=== PATIENT | female | born 1930 | race Caucasian/White ===

== ENCOUNTER → 2016-09-27 | Outpatient (CLI) | payer MEDICARE ==
[~2016-09-27] MED LIST: CALC200S NASAL; EX-L15TA PO; GABA100C4 PO; HYDR-3580 PO; LORA-373 PO; MEMA1TAB2 PO; MIDO2.5T PO; VITA100036 PO; [UNRECOGNIZED DRUG - OTHER]; [UNRECOGNIZED DRUG - SUPPLY]
[2016-09-27 11:42] LABS: HEMATOCRIT 37.9 % (35.0-46.0); MEAN CELL VOLUME 91.6 FL (80.0-100.0); MEAN CORPUSCULAR HEMOGLOBIN 30.4 PG (27.0-34.0); MEAN CORPUSCULAR HGB CONC 33.2 % (32.0-36.0); PLATELET COUNT 131 TH/MM3 (150-450); RED BLOOD COUNT 4.14 MIL/MM3 (4.00-5.30); RED CELL DISTRIBUTION WIDTH 13.5 % (11.6-17.2); REVIEW FLAG FINAL; WHITE BLOOD COUNT 4.5 TH/MM3 (4.0-11.0)
[2016-09-27 12:09] LABS: BICARBONATE 30.9 MEQ/L (21.0-32.0); POTASSIUM 3.7 MEQ/L (3.5-5.1)
== END ==
LOC: ELAB 10:01
PROVIDERS: ATTEND Family Medicine
DX: R41.0 Disorientation, unspecified (principal); R55 Syncope and collapse; F05 Delirium due to known physiological condition
CPT/HCPCS: 36415; 80048; 82607; 84443; 85027

== ENCOUNTER 2017-05-02 11:18 | Inpatient (IN) | payer MEDICARE ==
[2017-05-02] MEDS: PANTOPRAZOLE INJ 80 MG in SODIUM CHLORIDE 0.9% INJ 35 ML IV (12:19)
[2017-05-02 13:02] LABS: AUTOMATED NEUTROPHIL # 11.3 TH/MM3 (1.8-7.7); BASOPHIL % 0.1 % (0.0-2.0); HEMATOCRIT 41.4 % (35.0-46.0); HEMOGLOBIN 13.8 GM/DL (11.6-15.3); LYMPH % 3.4 % (9.0-44.0); LYMPHOCYTE # 0.4 TH/MM3 (1.0-4.8); MEAN CELL VOLUME 94.5 FL (80.0-100.0); MEAN CORPUSCULAR HEMOGLOBIN 31.6 PG (27.0-34.0); MEAN CORPUSCULAR HGB CONC 33.4 % (32.0-36.0); MEAN PLATELET VOLUME 9.7 FL (7.0-11.0); MONO % 6.7 % (0.0-8.0); MONOCYTE # 0.8 TH/MM3 (0-0.9); NEUT % 89.8 % (16.0-70.0); PLATELET COUNT 114 TH/MM3 (150-450); RED BLOOD COUNT 4.38 MIL/MM3 (4.00-5.30); RED CELL DISTRIBUTION WIDTH 13.4 % (11.6-17.2); WHITE BLOOD COUNT 12.6 TH/MM3 (4.0-11.0)
[2017-05-02 13:05] LABS: HEMO FLAGS AUTO DIFF
[2017-05-02 13:10] LABS: APTT (PATIENT) 28.5 SEC (24.3-30.1); INTERNATIONAL NORMALIZED RATIO 1.1 RATIO; PROTHROMBIN TIME - PATIENT 11.3 SEC (9.8-11.6)
[2017-05-02] MEDS: PANTOPRAZOLE INJ 80 MG in SODIUM CHLORIDE 0.9% INJ 100 ML IV ×2 (13:16→23:40)
[2017-05-02 13:25] LABS: LACTIC ACID SEPSIS PROTOCOL 4.4 mmol/L (0.4-2.0)
[2017-05-02 13:48] LABS: ALBUMIN 3.8 GM/DL (3.4-5.0); ALKALINE PHOSPHATASE 127 U/L (45-117); ALT (GPT) 64 U/L (10-53); ANION GAP 11 MEQ/L (5-15); BANDS 35 % (0-6); BLOOD UREA NITROGEN 25 MG/DL (7-18); CALCIUM 9.6 MG/DL (8.5-10.1); CHLORIDE 101 MEQ/L (98-107); GLOMERULAR FILTRATION RATE 36 ML/MIN (>89); GLUCOSE,RANDOM 187 MG/DL (74-106); LIPASE 60 U/L (73-393); LYMPHOCYTES 1 % (9-44); MONOCYTES 8 % (0-8); NEUTROPHIL # MANUAL DIFF 11.5 TH/MM3 (1.8-7.7); PLATELET ESTIMATE SMEAR LOW (NORMAL); PLATELET MORPHOLOGY NORMAL (NORMAL); POLYS (SEG NEUTROPHILS) 56 % (16-70); SCAN/DIFF FINAL DIFF MANUAL; SODIUM (NA) 138 MEQ/L (136-145); TOTAL BILIRUBIN ADULT 1.2 MG/DL (0.2-1.0); TOTAL PROTEIN 8.1 GM/DL (6.4-8.2); TROPONIN I 0.08 NG/ML (0.02-0.05); WBC DIFF SAMPLE 100
[2017-05-02] MEDS: SODIUM CHLOR 0.9% 1000 ML INJ 1,000 ML IV ×3 (13:54→16:11)
[2017-05-02] MEDS: PIPERACIL-TAZO 3.375 GM PREMIX 50 ML IV ×2 (13:54→21:55)
[2017-05-02 13:56] LABS: AST (GOT) 118 U/L (15-37); CREATINE KINASE 2240 U/L (26-192); POTASSIUM 4.4 MEQ/L (3.5-5.1)
[2017-05-02 14:08] LABS: CKMB 18.9 NG/ML (0.5-3.6); CKMB % 0.8 % (0.0-4.0)
[2017-05-02] MEDS: IOHEXOL 350 MG/ML 10 ML VIAL (for RAD DIAG) IVCONTRAST (14:23)
[2017-05-02] MEDS: IODIXANOL 320 MG/ML 10 ML VIAL (for Rad CT) IVCONTRAST (14:30)
[2017-05-02] MEDS: VANCOMYCIN INJ 900 MG in SODIUM CHLOR 0.9% 250 ML INJ 250 ML IV (14:32)
[2017-05-02 14:48] LABS: LACTIC ACID GHOST NOT REPORTABLE
[2017-05-02 15:27] LABS: LACTIC ACID 2.6 mmol/L (0.4-2.0)
[2017-05-02] MEDS ORDERED: ACETAMINOPHEN 325 MG TAB PO (15:30)
[2017-05-02] MEDS ORDERED: ONDANSETRON HCL 4 MG/2 ML VIAL IVP (15:30)
[2017-05-02] MEDS ORDERED: NALOXONE HCL 0.4 MG/ML AMP IV PUSH (15:30)
[2017-05-02] MEDS ORDERED: PANTOPRAZOLE SODIUM 40 MG VIAL IV PUSH (16:00)
[2017-05-02 16:55] LABS: LACTIC ACID SEPSIS REPEAT 2.8 mmol/L (0.4-2.0)
[2017-05-02 16:56] LABS: BACTERIA, URINE MANY /hpf; BILIRUBIN, URINE NEG (NEG); BLOOD, URINE MOD (NEG); GLUCOSE,URINE TRACE mg/dL (NEG); HYALINE CAST, URINE 14 /lpf (RARE); KETONE, URINE NEG (NEG); MUCUS URINE FEW /lpf (OCC); NITRITE,URINE NEG (NEG); PH, URINE 5.5 (5.0-8.5); SQUAMOUS EPITHELIAL CELL URINE 1 /hpf (0-5); URINE COLOR YELLOW (YELLW/STRAW); URINE LEUKOCYTE ESTERASE MOD (NEG)
[2017-05-02 16:58] LABS: COMMENT (UR) CATH-CULTURE IND; CULTURE IF INDICATED CATH CULTURE IND
[2017-05-02] MEDS ORDERED: LORazepam 0.5 MG TAB PO (17:45)
[2017-05-02] MEDS ORDERED: Vancomycin Consult Pharmacy 1 EA OTHER (18:15)
[2017-05-02] MEDS: GABAPENTIN 100 MG CAP PO (21:00)
[2017-05-02] MEDS: DOCUSATE SODIUM 50 MG/SENNA 8.6 MG TAB PO (21:00)
[2017-05-02] MEDS: MEMANTINE HCL 10 MG TAB PO (21:00)
[2017-05-02 21:07] LABS: TROPONIN I 0.23 NG/ML (0.02-0.05)
[2017-05-02 21:40] LABS: ANION GAP 6 MEQ/L (5-15); BICARBONATE 28.5 MEQ/L (21.0-32.0); BLOOD UREA NITROGEN 22 MG/DL (7-18); CALCIUM 8.5 MG/DL (8.5-10.1); CHLORIDE 109 MEQ/L (98-107); CREATININE 0.92 MG/DL (0.50-1.00); GLOMERULAR FILTRATION RATE 58 ML/MIN (>89); GLUCOSE,RANDOM 130 MG/DL (74-106); POTASSIUM 3.8 MEQ/L (3.5-5.1); SODIUM (NA) 143 MEQ/L (136-145)
[2017-05-02] MEDS: SODIUM CHLORIDE 0.9% FLUSH 10 ML FLUSH IV FLUSH (21:56)
[2017-05-03 00:36] LABS: HEMOGLOBIN 11.3 GM/DL (11.6-15.3)
[2017-05-03 00:36] LABS: HEMATOCRIT 32.6 % (35.0-46.0)
[2017-05-03 00:39] LABS: REVIEW FLAG FINAL
[2017-05-03 00:50] LABS: LACTIC ACID SEPSIS PROTOCOL 1.3 mmol/L (0.4-2.0)
[2017-05-03 00:56] LABS: TROPONIN I 0.26 NG/ML (0.02-0.05)
[2017-05-03] MEDS ORDERED: VANCOMYCIN INJ 900 MG in SODIUM CHLOR 0.9% 250 ML INJ 250 ML IV (01:30)
[2017-05-03] MEDS: SODIUM CHLOR 0.9% 1000 ML INJ 1,000 ML IV ×3 (02:11→21:57)
[2017-05-03] MEDS: LORazepam 2 MG/ML VIAL IV PUSH ×2 (03:09→09:55)
[2017-05-03] MEDS: PIPERACIL-TAZO 3.375 GM PREMIX 50 ML IV ×4 (03:12→21:55)
[2017-05-03] MEDS ORDERED: CHLORHEXIDINE GLUCONATE 2 % 1 PACK (2 CLOTHS) TOPICAL (06:15)
[2017-05-03] MEDS ORDERED: SODIUM CHLORID 0.9% 500 ML IV (06:15)
[2017-05-03] MEDS ORDERED: LACTATED RINGER'S 1000 ML IV (06:15)
[2017-05-03] MEDS ORDERED: POVIDONE IODINE 5% (ANTISEPSIS KIT) 4 APPLICATIONS EACH NARE (06:15)
[2017-05-03] MEDS: SODIUM CHLORIDE 0.9% FLUSH 10 ML FLUSH IV FLUSH ×2 (09:00→21:00)
[2017-05-03] MEDS: GABAPENTIN 100 MG CAP PO ×2 (09:00→21:00)
[2017-05-03] MEDS: DOCUSATE SODIUM 50 MG/SENNA 8.6 MG TAB PO ×2 (09:00→21:00)
[2017-05-03] MEDS: MEMANTINE HCL 10 MG TAB PO ×2 (09:00→21:00)
[2017-05-03] MEDS: PANTOPRAZOLE INJ 80 MG in SODIUM CHLORIDE 0.9% INJ 100 ML IV (10:12)
[2017-05-03] MEDS: LIDOCAINE HCL 1% PF 5 ML SYRINGE OTHER (12:00)
[2017-05-03] MEDS: PROPOFOL 200 MG/20 ML AMP IV (12:00)
[2017-05-03 12:02] LABS: AUTOMATED NEUTROPHIL # 6.5 TH/MM3 (1.8-7.7); BASOPHIL % 0.2 % (0.0-2.0); EOSINOPHIL % 0.3 % (0.0-4.0); HEMATOCRIT 36.7 % (35.0-46.0); HEMOGLOBIN 12.2 GM/DL (11.6-15.3); LYMPH % 8.1 % (9.0-44.0); LYMPHOCYTE # 0.6 TH/MM3 (1.0-4.8); MEAN CELL VOLUME 94.1 FL (80.0-100.0); MEAN CORPUSCULAR HEMOGLOBIN 31.3 PG (27.0-34.0); MEAN CORPUSCULAR HGB CONC 33.2 % (32.0-36.0); MEAN PLATELET VOLUME 9.9 FL (7.0-11.0); MONOCYTE # 0.5 TH/MM3 (0-0.9); NEUT % 85.4 % (16.0-70.0); PLATELET COUNT 98 TH/MM3 (150-450); RED CELL DISTRIBUTION WIDTH 13.4 % (11.6-17.2); WHITE BLOOD COUNT 7.6 TH/MM3 (4.0-11.0)
[2017-05-03 12:06] LABS: HEMO FLAGS AUTO DIFF
[2017-05-03] MEDS: VANCOMYCIN 1,000 MG/NS 250 ML IV (12:18)
[2017-05-03 12:28] LABS: ALBUMIN 2.9 GM/DL (3.4-5.0); ALT (GPT) 70 U/L (10-53); ANION GAP 7 MEQ/L (5-15); AST (GOT) 164 U/L (15-37); BICARBONATE 26.2 MEQ/L (21.0-32.0); BLOOD UREA NITROGEN 21 MG/DL (7-18); CALCIUM 8.7 MG/DL (8.5-10.1); CHLORIDE 109 MEQ/L (98-107); CREATININE 0.71 MG/DL (0.50-1.00); GLOMERULAR FILTRATION RATE 78 ML/MIN (>89); GLUCOSE,RANDOM 76 MG/DL (74-106); POTASSIUM 3.4 MEQ/L (3.5-5.1); SODIUM (NA) 142 MEQ/L (136-145)
[2017-05-03 12:41] LABS: ALKALINE PHOSPHATASE 95 U/L (45-117); CREATINE KINASE 4762 U/L (26-192); TOTAL BILIRUBIN ADULT 1.1 MG/DL (0.2-1.0); TOTAL PROTEIN 6.2 GM/DL (6.4-8.2)
[2017-05-03 12:54] LABS: CKMB 18.5 NG/ML (0.5-3.6); CKMB % 0.4 % (0.0-4.0)
[2017-05-03 12:58] LABS: WESTERGREN SEDIMENTATION RATE 39 mm/hr (0-30)
[2017-05-03 13:08] LABS: PLATELET ESTIMATE SMEAR LOW (NORMAL); PLATELET MORPHOLOGY NORMAL (NORMAL); SCAN/DIFF AUTO DIFF CONFIRMED
[2017-05-03] MEDS: PANTOPRAZOLE SOD 40 MG DELAYED RELEASE TAB PO (14:30)
[2017-05-03] MEDS: *ONDANSETRON 4 MG VIAL PERIprocedural Use ONLY (14:46)
[2017-05-03] MEDS: *LABETALOL HCL 100 MG/20 ML VIAL PERIprocedural Use ONLY (14:50)
[2017-05-03] MEDS ORDERED: DO NOT ADM ANY ANTICOAGULANT DRUGS (16:30)
[2017-05-03] MEDS: ENALAPRILAT 1.25 MG/ML VIAL IV PUSH (22:50)
[2017-05-04] MEDS ORDERED: VANCOMYCIN INJ 900 MG in SODIUM CHLOR 0.9% 250 ML INJ 250 ML IV (02:00)
[2017-05-04] MEDS: PIPERACIL-TAZO 3.375 GM PREMIX 50 ML IV ×4 (06:50→23:06)
[2017-05-04] MEDS: SODIUM CHLOR 0.9% 1000 ML INJ 1,000 ML IV ×2 (07:17→18:37)
[2017-05-04 08:43] LABS: AUTOMATED NEUTROPHIL # 6.8 TH/MM3 (1.8-7.7); BASOPHIL % 0.1 % (0.0-2.0); EOSINOPHIL % 0.5 % (0.0-4.0); HEMATOCRIT 35.1 % (35.0-46.0); HEMO FLAGS DIFF FINAL; HEMOGLOBIN 11.7 GM/DL (11.6-15.3); LYMPH % 6.7 % (9.0-44.0); LYMPHOCYTE # 0.5 TH/MM3 (1.0-4.8); MEAN CELL VOLUME 93.2 FL (80.0-100.0); MEAN CORPUSCULAR HGB CONC 33.3 % (32.0-36.0); MEAN PLATELET VOLUME 9.1 FL (7.0-11.0); MONO % 5.5 % (0.0-8.0); MONOCYTE # 0.4 TH/MM3 (0-0.9); NEUT % 87.2 % (16.0-70.0); PLATELET COUNT 105 TH/MM3 (150-450); RED BLOOD COUNT 3.77 MIL/MM3 (4.00-5.30); RED CELL DISTRIBUTION WIDTH 13.1 % (11.6-17.2); WHITE BLOOD COUNT 7.8 TH/MM3 (4.0-11.0)
[2017-05-04] MEDS: SODIUM CHLORIDE 0.9% FLUSH 10 ML FLUSH IV FLUSH ×2 (08:45→21:11)
[2017-05-04] MEDS: MEMANTINE HCL 10 MG TAB PO ×2 (08:45→21:10)
[2017-05-04] MEDS: PANTOPRAZOLE SOD 40 MG DELAYED RELEASE TAB PO (08:45)
[2017-05-04] MEDS: GABAPENTIN 100 MG CAP PO ×2 (08:45→21:10)
[2017-05-04] MEDS: DOCUSATE SODIUM 50 MG/SENNA 8.6 MG TAB PO ×2 (08:45→21:10)
[2017-05-04 08:55] LABS: AMMONIA LESS THAN 10 MCMOL/L (11-32)
[2017-05-04 09:15] LABS: ANION GAP 9 MEQ/L (5-15); BLOOD UREA NITROGEN 17 MG/DL (7-18); CALCIUM 8.7 MG/DL (8.5-10.1); CHLORIDE 107 MEQ/L (98-107); CREATININE 0.64 MG/DL (0.50-1.00); GLOMERULAR FILTRATION RATE 88 ML/MIN (>89); GLUCOSE,RANDOM 85 MG/DL (74-106); POTASSIUM 3.4 MEQ/L (3.5-5.1); SODIUM (NA) 141 MEQ/L (136-145)
[2017-05-04 09:33] LABS: CREATINE KINASE 2560 U/L (26-192)
[2017-05-04 09:57] LABS: CKMB 8.6 NG/ML (0.5-3.6); CKMB % 0.3 % (0.0-4.0)
[2017-05-04] MEDS ORDERED: PILL SPLITTER OTHER (12:45)
[2017-05-04] MEDS: METOPROLOL TARTRATE 25 MG TAB PO ×2 (13:05→21:10)
[2017-05-04] MEDS: POTASSIUM CHLORIDE 10 MEQ CONTROLLED RELEASE TAB PO (13:05)
[2017-05-04] MEDS: ACETAMINOPHEN/HYDROcodone 325 MG/7.5 MG TAB PO (21:11)
[2017-05-05] MEDS: SODIUM CHLOR 0.9% 1000 ML INJ 1,000 ML IV (03:17)
[2017-05-05] MEDS: PIPERACIL-TAZO 3.375 GM PREMIX 50 ML IV (05:18)
[2017-05-05] MEDS: DOCUSATE SODIUM 50 MG/SENNA 8.6 MG TAB PO ×2 (09:00→20:12)
[2017-05-05 09:51] LABS: AUTOMATED NEUTROPHIL # 7.7 TH/MM3 (1.8-7.7); BASOPHIL % 0.2 % (0.0-2.0); EOSINOPHIL % 0.1 % (0.0-4.0); HEMATOCRIT 36.6 % (35.0-46.0); HEMOGLOBIN 12.1 GM/DL (11.6-15.3); LYMPH % 5.6 % (9.0-44.0); LYMPHOCYTE # 0.5 TH/MM3 (1.0-4.8); MEAN CELL VOLUME 93.5 FL (80.0-100.0); MEAN CORPUSCULAR HGB CONC 33.2 % (32.0-36.0); MEAN PLATELET VOLUME 9.7 FL (7.0-11.0); MONO % 5.1 % (0.0-8.0); MONOCYTE # 0.4 TH/MM3 (0-0.9); PLATELET COUNT 106 TH/MM3 (150-450); RED BLOOD COUNT 3.91 MIL/MM3 (4.00-5.30); RED CELL DISTRIBUTION WIDTH 13.2 % (11.6-17.2); WHITE BLOOD COUNT 8.6 TH/MM3 (4.0-11.0)
[2017-05-05 09:57] LABS: HEMO FLAGS AUTO DIFF
[2017-05-05] MEDS: SODIUM CHLORIDE 0.9% FLUSH 10 ML FLUSH IV FLUSH ×2 (10:00→20:13)
[2017-05-05] MEDS: FUROSEMIDE 40 MG/4 ML VIAL IV PUSH ×2 (10:00→14:23)
[2017-05-05] MEDS: GABAPENTIN 100 MG CAP PO ×2 (10:00→20:12)
[2017-05-05] MEDS: METOPROLOL TARTRATE 25 MG TAB PO ×2 (10:01→20:12)
[2017-05-05] MEDS: PANTOPRAZOLE SOD 40 MG DELAYED RELEASE TAB PO (10:01)
[2017-05-05] MEDS: MEMANTINE HCL 10 MG TAB PO ×2 (10:01→20:12)
[2017-05-05 10:08] LABS: ALBUMIN 2.5 GM/DL (3.4-5.0); ANION GAP 10 MEQ/L (5-15); AST (GOT) 102 U/L (15-37); BICARBONATE 23.2 MEQ/L (21.0-32.0); BLOOD UREA NITROGEN 17 MG/DL (7-18); CALCIUM 8.5 MG/DL (8.5-10.1); CHLORIDE 108 MEQ/L (98-107); CREATININE 0.63 MG/DL (0.50-1.00); GLOMERULAR FILTRATION RATE 89 ML/MIN (>89); GLUCOSE,RANDOM 132 MG/DL (74-106); POTASSIUM 3.1 MEQ/L (3.5-5.1); SODIUM (NA) 141 MEQ/L (136-145)
[2017-05-05 10:09] LABS: ALT (GPT) 69 U/L (10-53)
[2017-05-05 10:25] LABS: ALKALINE PHOSPHATASE 94 U/L (45-117); CREATINE KINASE 1413 U/L (26-192)
[2017-05-05 10:38] LABS: SCAN/DIFF AUTO DIFF CONFIRMED
[2017-05-05 10:48] LABS: CKMB 4.2 NG/ML (0.5-3.6); CKMB % 0.3 % (0.0-4.0)
[2017-05-05 12:07] LABS: B-TYPE NATRIURETIC PEPTIDE 461 PG/ML (0-100)
[2017-05-05] MEDS: POTASSIUM CHLORIDE 10 MEQ CAP PO (13:05)
[2017-05-05] MEDS: LEVOFLOXACIN 750 MG TAB PO (13:05)
[2017-05-05] MEDS: LORazepam 2 MG/ML VIAL IV PUSH (13:06)
[2017-05-05] MEDS ORDERED: PHARMACY ORDERED LAB (13:45)
[2017-05-05] MEDS ORDERED: RESP: ALBUTEROL 2.5 MG/3 ML NEB (PRN) INH (15:00)
[2017-05-05] MEDS: RESP: ALBUTEROL 2.5 MG/IPRATROPIUM 0.5 MG NEB (SCH) INH (19:01)
[2017-05-06] MEDS: LISINOPRIL 5 MG TAB PO (08:05)
[2017-05-06] MEDS: DOCUSATE SODIUM 50 MG/SENNA 8.6 MG TAB PO ×2 (08:05→20:45)
[2017-05-06] MEDS: PANTOPRAZOLE SOD 40 MG DELAYED RELEASE TAB PO (08:05)
[2017-05-06] MEDS: GABAPENTIN 100 MG CAP PO ×2 (08:05→20:45)
[2017-05-06] MEDS: MEMANTINE HCL 10 MG TAB PO ×2 (08:05→20:51)
[2017-05-06] MEDS: METOPROLOL TARTRATE 25 MG TAB PO ×2 (08:06→20:46)
[2017-05-06] MEDS: SODIUM CHLORIDE 0.9% FLUSH 10 ML FLUSH IV FLUSH ×2 (08:06→20:46)
[2017-05-06 08:31] LABS: ALBUMIN 2.5 GM/DL (3.4-5.0); ALKALINE PHOSPHATASE 110 U/L (45-117); ALT (GPT) 86 U/L (10-53); ANION GAP 7 MEQ/L (5-15); AST (GOT) 117 U/L (15-37); BLOOD UREA NITROGEN 19 MG/DL (7-18); CALCIUM 9.3 MG/DL (8.5-10.1); CHLORIDE 98 MEQ/L (98-107); CREATINE KINASE 1291 U/L (26-192); CREATININE 0.79 MG/DL (0.50-1.00); GLOMERULAR FILTRATION RATE 69 ML/MIN (>89); GLUCOSE,RANDOM 123 MG/DL (74-106); SODIUM (NA) 138 MEQ/L (136-145); TOTAL BILIRUBIN ADULT 0.7 MG/DL (0.2-1.0); TOTAL PROTEIN 6.6 GM/DL (6.4-8.2)
[2017-05-06 08:35] LABS: POTASSIUM 2.9 MEQ/L (3.5-5.1)
[2017-05-06 09:12] LABS: CKMB 3.3 NG/ML (0.5-3.6); CKMB % 0.3 % (0.0-4.0)
[2017-05-06] MEDS: RESP: ALBUTEROL 2.5 MG/IPRATROPIUM 0.5 MG NEB (SCH) INH ×3 (09:15→21:02)
[2017-05-06] MEDS: POTASSIUM CHLORIDE 10 MEQ CONTROLLED RELEASE TAB PO ×3 (09:58→20:43)
[2017-05-06 10:12] LABS: B-TYPE NATRIURETIC PEPTIDE 200 PG/ML (0-100)
[2017-05-06] MEDS: LEVOFLOXACIN 750 MG TAB PO (11:34)
[2017-05-06] MEDS ORDERED: PHARMACY ORDERED LAB (11:45)
[2017-05-06 19:15] LABS: POTASSIUM 3.3 MEQ/L (3.5-5.1)
[2017-05-07 06:42] LABS: HEMATOCRIT 36.2 % (35.0-46.0); HEMOGLOBIN 12.2 GM/DL (11.6-15.3); MEAN CORPUSCULAR HEMOGLOBIN 31.3 PG (27.0-34.0); MEAN CORPUSCULAR HGB CONC 33.7 % (32.0-36.0); MEAN PLATELET VOLUME 9.6 FL (7.0-11.0); PLATELET COUNT 141 TH/MM3 (150-450); RED BLOOD COUNT 3.89 MIL/MM3 (4.00-5.30); RED CELL DISTRIBUTION WIDTH 13.2 % (11.6-17.2); REVIEW FLAG FINAL; WHITE BLOOD COUNT 7.8 TH/MM3 (4.0-11.0)
[2017-05-07 07:04] LABS: CREATINE KINASE 577 U/L (26-192)
[2017-05-07 07:05] LABS: ALBUMIN 2.2 GM/DL (3.4-5.0); ALT (GPT) 94 U/L (10-53); ANION GAP 6 MEQ/L (5-15); AST (GOT) 95 U/L (15-37); BICARBONATE 32.9 MEQ/L (21.0-32.0); BLOOD UREA NITROGEN 23 MG/DL (7-18); CALCIUM 8.8 MG/DL (8.5-10.1); CHLORIDE 103 MEQ/L (98-107); CREATININE 0.68 MG/DL (0.50-1.00); GLOMERULAR FILTRATION RATE 82 ML/MIN (>89); GLUCOSE,RANDOM 134 MG/DL (74-106); POTASSIUM 3.4 MEQ/L (3.5-5.1); SODIUM (NA) 142 MEQ/L (136-145)
[2017-05-07 07:07] LABS: ALKALINE PHOSPHATASE 96 U/L (45-117); TOTAL BILIRUBIN ADULT 0.6 MG/DL (0.2-1.0); TOTAL PROTEIN 6.2 GM/DL (6.4-8.2)
[2017-05-07 07:18] LABS: CKMB 3.3 NG/ML (0.5-3.6); CKMB % 0.6 % (0.0-4.0)
[2017-05-07] MEDS: DOCUSATE SODIUM 50 MG/SENNA 8.6 MG TAB PO ×2 (08:55→21:10)
[2017-05-07] MEDS: METOPROLOL TARTRATE 25 MG TAB PO ×2 (08:55→21:10)
[2017-05-07] MEDS: MEMANTINE HCL 10 MG TAB PO ×2 (08:55→21:11)
[2017-05-07] MEDS: GABAPENTIN 100 MG CAP PO ×2 (08:55→21:10)
[2017-05-07] MEDS: LISINOPRIL 5 MG TAB PO (08:56)
[2017-05-07] MEDS: PANTOPRAZOLE SOD 40 MG DELAYED RELEASE TAB PO (08:56)
[2017-05-07] MEDS: SODIUM CHLORIDE 0.9% FLUSH 10 ML FLUSH IV FLUSH ×2 (08:56→21:11)
[2017-05-07] MEDS: RESP: ALBUTEROL 2.5 MG/IPRATROPIUM 0.5 MG NEB (SCH) INH ×3 (09:12→20:00)
[2017-05-07] MEDS: LEVOFLOXACIN 750 MG TAB PO (11:54)
[2017-05-07] MEDS: POTASSIUM CHLORIDE 10 MEQ CONTROLLED RELEASE TAB PO (11:54)
[2017-05-07] MEDS: LORazepam 2 MG/ML VIAL IV PUSH (13:27)
[2017-05-08] MEDS: RESP: ALBUTEROL 2.5 MG/IPRATROPIUM 0.5 MG NEB (SCH) INH ×4 (07:37→20:57)
[2017-05-08 07:46] LABS: BASOPHIL % 0.3 % (0.0-2.0); EOSINOPHIL # 0.2 TH/MM3 (0-0.4); EOSINOPHIL % 2.5 % (0.0-4.0); HEMATOCRIT 37.7 % (35.0-46.0); HEMO FLAGS DIFF FINAL; HEMOGLOBIN 12.4 GM/DL (11.6-15.3); LYMPH % 11.2 % (9.0-44.0); LYMPHOCYTE # 0.7 TH/MM3 (1.0-4.8); MEAN CELL VOLUME 93.4 FL (80.0-100.0); MEAN CORPUSCULAR HEMOGLOBIN 30.6 PG (27.0-34.0); MEAN CORPUSCULAR HGB CONC 32.8 % (32.0-36.0); MEAN PLATELET VOLUME 9.1 FL (7.0-11.0); MONO % 10.2 % (0.0-8.0); MONOCYTE # 0.7 TH/MM3 (0-0.9); NEUT % 75.8 % (16.0-70.0); PLATELET COUNT 151 TH/MM3 (150-450); RED BLOOD COUNT 4.04 MIL/MM3 (4.00-5.30); RED CELL DISTRIBUTION WIDTH 13.4 % (11.6-17.2); WHITE BLOOD COUNT 6.6 TH/MM3 (4.0-11.0)
[2017-05-08 08:56] LABS: BLOOD UREA NITROGEN 20 MG/DL (7-18); CREATININE 0.61 MG/DL (0.50-1.00); GLOMERULAR FILTRATION RATE 93 ML/MIN (>89); GLUCOSE,RANDOM 105 MG/DL (74-106)
[2017-05-08 08:57] LABS: ALBUMIN 2.1 GM/DL (3.4-5.0); ALKALINE PHOSPHATASE 98 U/L (45-117); ALT (GPT) 92 U/L (10-53); ANION GAP 7 MEQ/L (5-15); AST (GOT) 82 U/L (15-37); BICARBONATE 29.4 MEQ/L (21.0-32.0); CHLORIDE 106 MEQ/L (98-107); CREATINE KINASE 140 U/L (26-192); POTASSIUM 4.4 MEQ/L (3.5-5.1); SODIUM (NA) 142 MEQ/L (136-145); TOTAL BILIRUBIN ADULT 0.6 MG/DL (0.2-1.0); TOTAL PROTEIN 6.2 GM/DL (6.4-8.2)
[2017-05-08] MEDS: SODIUM CHLORIDE 0.9% FLUSH 10 ML FLUSH IV FLUSH ×2 (09:00→20:40)
[2017-05-08] MEDS: DOCUSATE SODIUM 50 MG/SENNA 8.6 MG TAB PO ×2 (12:31→20:39)
[2017-05-08] MEDS: GABAPENTIN 100 MG CAP PO ×2 (12:31→20:39)
[2017-05-08] MEDS: LISINOPRIL 5 MG TAB PO (12:31)
[2017-05-08] MEDS: PANTOPRAZOLE SOD 40 MG DELAYED RELEASE TAB PO (12:31)
[2017-05-08] MEDS: LEVOFLOXACIN 750 MG TAB PO (12:32)
[2017-05-08] MEDS: predniSONE 20 MG TAB PO (12:32)
[2017-05-08] MEDS: MEMANTINE HCL 10 MG TAB PO ×2 (17:13→20:39)
[2017-05-08] MEDS: METOPROLOL TARTRATE 25 MG TAB PO ×2 (17:13→20:40)
[2017-05-09] MEDS: LORazepam 2 MG/ML VIAL IV PUSH (04:27)
[2017-05-09] MEDS: SODIUM CHLORIDE 0.9% FLUSH 10 ML FLUSH IV FLUSH ×3 (04:28→22:06)
[2017-05-09] MEDS: RESP: ALBUTEROL 2.5 MG/IPRATROPIUM 0.5 MG NEB (SCH) INH ×3 (08:00→19:20)
[2017-05-09 08:41] LABS: ANION GAP 6 MEQ/L (5-15); AST (GOT) 146 U/L (15-37); BICARBONATE 30.4 MEQ/L (21.0-32.0); BLOOD UREA NITROGEN 18 MG/DL (7-18); CALCIUM 8.9 MG/DL (8.5-10.1); CHLORIDE 105 MEQ/L (98-107); CREATININE 0.59 MG/DL (0.50-1.00); GLOMERULAR FILTRATION RATE 96 ML/MIN (>89); GLUCOSE,RANDOM 100 MG/DL (74-106); POTASSIUM 3.3 MEQ/L (3.5-5.1); SODIUM (NA) 141 MEQ/L (136-145)
[2017-05-09 08:43] LABS: ALT (GPT) 162 U/L (10-53)
[2017-05-09 08:45] LABS: ALKALINE PHOSPHATASE 121 U/L (45-117); TOTAL BILIRUBIN ADULT 0.4 MG/DL (0.2-1.0); TOTAL PROTEIN 5.9 GM/DL (6.4-8.2)
[2017-05-09] MEDS: DOCUSATE SODIUM 50 MG/SENNA 8.6 MG TAB PO ×2 (09:00→21:00)
[2017-05-09] MEDS: GABAPENTIN 100 MG CAP PO ×2 (09:00→21:00)
[2017-05-09] MEDS: MEMANTINE HCL 10 MG TAB PO ×2 (09:00→21:00)
[2017-05-09] MEDS: METOPROLOL TARTRATE 25 MG TAB PO ×2 (09:00→21:00)
[2017-05-09] MEDS: LISINOPRIL 5 MG TAB PO (17:49)
[2017-05-09] MEDS: PANTOPRAZOLE SOD 40 MG DELAYED RELEASE TAB PO (17:49)
[2017-05-09] MEDS: POTASSIUM CHLORIDE 10 MEQ CAP PO (17:49)
[2017-05-09] MEDS: LEVOFLOXACIN 750 MG TAB PO (17:51)
[2017-05-09] MEDS: predniSONE 20 MG TAB PO (17:53)
[2017-05-10] MEDS: SODIUM CHLORIDE 0.9% FLUSH 10 ML FLUSH IV FLUSH (07:26)
[2017-05-10] MEDS: LISINOPRIL 5 MG TAB PO (08:10)
[2017-05-10] MEDS: DOCUSATE SODIUM 50 MG/SENNA 8.6 MG TAB PO (08:10)
[2017-05-10] MEDS: METOPROLOL TARTRATE 25 MG TAB PO (08:10)
[2017-05-10] MEDS: GABAPENTIN 100 MG CAP PO (08:10)
[2017-05-10] MEDS: MEMANTINE HCL 10 MG TAB PO (08:10)
[2017-05-10] MEDS: PANTOPRAZOLE SOD 40 MG DELAYED RELEASE TAB PO (08:11)
[2017-05-10] MEDS: predniSONE 20 MG TAB PO (08:11)
[2017-05-10] MEDS: RESP: ALBUTEROL 2.5 MG/IPRATROPIUM 0.5 MG NEB (SCH) INH ×2 (08:21→11:44)
[2017-05-10] MEDS: LEVOFLOXACIN 750 MG TAB PO (12:37)
== END 2017-05-10 15:59 | DRG 377 ==
LOC: NEPC 11:18 → NEDH 15:07 → NEDA 16:44 → N04A 19:09
PROC: 0DB38ZX Excision of Lower Esophagus, Via Natural or Artificial Opening Endoscopic, Diagnostic (ICD-10-PCS; principal; 2017-05-03 13:57)
PROC: 0DB78ZX Excision of Stomach, Pylorus, Via Natural or Artificial Opening Endoscopic, Diagnostic (ICD-10-PCS; 2017-05-03 13:57)
DX: K92.0 Hematemesis (principal); J18.9 Pneumonia, unspecified organism; J90 Pleural effusion, not elsewhere classified; L89.212 Pressure ulcer of right hip, stage 2; L89.220 Pressure ulcer of left hip, unstageable; M62.82 Rhabdomyolysis; G30.9 Alzheimer's disease, unspecified; J44.0 Chronic obstructive pulmonary disease with (acute) lower respiratory infection; F02.80 Dementia in other diseases classified elsewhere, unspecified severity, without behavioral disturbance, psychotic disturbance, mood disturbance, and anxiety; K22.10 Ulcer of esophagus without bleeding; E87.70 Fluid overload, unspecified; L89.020 Pressure ulcer of left elbow, unstageable; L89.010 Pressure ulcer of right elbow, unstageable; S80.01XA Contusion of right knee, initial encounter; S80.02XA Contusion of left knee, initial encounter; K21.9 Gastro-esophageal reflux disease without esophagitis; M50.30 Other cervical disc degeneration, unspecified cervical region; I45.10 Unspecified right bundle-branch block; K56.41 Fecal impaction; S70.01XA Contusion of right hip, initial encounter; W19.XXXA Unspecified fall, initial encounter; E87.6 Hypokalemia; H91.90 Unspecified hearing loss, unspecified ear; M17.10 Unilateral primary osteoarthritis, unspecified knee; M81.0 Age-related osteoporosis without current pathological fracture; I10 Essential (primary) hypertension; K31.89 Other diseases of stomach and duodenum; R13.13 Dysphagia, pharyngeal phase; Z87.11 Personal history of peptic ulcer disease; Z85.3 Personal history of malignant neoplasm of breast; Z86.73 Personal history of transient ischemic attack (TIA), and cerebral infarction without residual deficits; D64.9 Anemia, unspecified; R74.8 Abnormal levels of other serum enzymes
CPT/HCPCS: 70450; 70486; 71045; 72125; 73564; 74177; 80048; 80053; 81001; 82140; 82550; 82552; 82948; 83605; 83690; 83735; 83874; 83880; 84132; 84443; 84484; 85007; 85014; 85018; 85025; 85027; 85610; 85652; 85730; 86850; 86900; 86901; 87040; 87086; 88305; 88305-59; 88312; 92526-GN; 92610-GN; 93005; 93306; 94150; 94640; 94664; 94667; 96365; 96366; 96368; 97110-GO; 97162-GP; 97166-GO; 97530-GO; 97530-GP; 97535-GO; 99285-25